=== PATIENT | female | born 1995 | race Caucasian/White ===

== ENCOUNTER 2024-08-16 19:53 | Emergency (ER) | payer SELFPAY ==
--- NOTE | ~2024-08-16 | XR_ITS ---
CLINICAL HISTORY: pain 3 view right shoulder Comparison: None provided Findings: Bones intact. No dislocations. No significant arthritic change. No erosions. No radiopaque foreign body. IMPRESSION: 1. No acute findings This document has been electronically signed by: Jeana Amaya MD on 08/16/2024 20:54:00
[2024-08-16 20:03] VITALS: BP 128/76; PULSE 92; RESP 20; TEMP 36.3; O2SAT 99; BMI 23.4
--- NOTE | 2024-08-16 20:04 | ED_ITS ---
HPI - General Adult General Chief complaint: Extremity Problem Stated complaint: R shoulder pain Time Seen by Provider: 08/16/24 23:57 Source: patient Mode of arrival: ambulatory Limitations: no limitations History of Present Illness ED Provider: Dr. Ann Correa HPI narrative: Patient comes to the emergency room complaining of right-sided upper back pain. Patient denies any trauma. Patient states that the pain is there only with movement. Denies any injuries any falls or any heavy lifting. Denies any numbness or tingling, or any radiation of pain Related Data Previous Rx's ?Medication ?Instructions ?Recorded cyclobenzaprine 5 mg tablet 5 mg PO TID PRN muscle spa sm #10 08/17/24 tabs ibuprofen 600 mg tablet 600 mg PO Q8H PRN fever or p ain 08/17/24 #20 tabs Allergies Allergy/AdvReac Type Severity Reaction Status Date / Time sulfamethoxazole (From Allergy Severe ANAPHYLAXIS Verified 08/16/24 20:04 BACTRIM) trimethoprim (From BACTRIM) Allergy Severe ANAPHYLAXIS Verified 08/16/24 20:04 Review of Systems Review of Systems: Constitutional : No Weight loss, No Fever, No Chills, No Night Sweats, No Fatigue, No Malaise ENT/Mouth : No Hearing loss, No Ear Pain, No Nasal Congestion, No Sinus Pain, No Hoarseness, No sore throat, No Rhinorrhea, No Swallowing Difficulty Eyes: No Eye Pain, No Swelling, No Redness, No Foreign Body, No Discharge, No Vision Changes Cardiovascular : No Chest Pain, No SOB, No Dyspnea on Exertion, No Orthopnea, No Edema, No Palpitations Respiratory : No Cough, No Sputum, No Wheezing, No Smoke Exposure, No Dyspnea Gastrointestinal : No Nausea, No Vomiting, No Diarrhea, No Constipation, No abdominal Pain, No Hematochezia, No Melena Genitourinary : no irregular bleeding, No Dysuria, No Urinary Frequency, No Hematuria, No Urinary Incontinence, No Urgency, No Flank Pain, No Urinary Flow Changes, No Hesitancy Musculoskeletal : Complaining of upper back pain above the suprascapular area, No Myalgias, No Joint Swelling Skin : No Skin Lesions, No rash Neuro : No Weakness, No Numbness, No Paresthesias, No Loss of Consciousness, No Dizziness, No Headache Psych : No Anxiety/Panic, No Depression, No SI/HI/AH/VH, No Social Issues, Heme/Lymph: No Bruising, No Bleeding,No Lymphadenopathy Endocrine : No Polyuria, No Polydipsia, No Temperature Intolerance [facility] Social History Social History Advance Directives: No Advance Directives Information Provided: Yes Physical Exam ED Vital Signs: Vital Signs - 24 hr 08/16/24 20:03 Temperature 97.4 F Pulse Rate 92 Respiratory Rate 20 Blood Pressure 128/76 Pulse Oximetry 99 Oxygen Delivery Method Room Air BMI result Body Mass Index 23.4 Const Other: Appearance: Alert. Oriented X3. No acute distress. Eyes: Pupils equal, round and reactive to light. ENT: Pharynx normal. Neck: Normal inspection. Neck supple. No lymph nodes noted. No crepitus CVS: Normal heart rate and rhythm. Pulses normal. Normal S1 and S2 Respiratory: No respiratory distress. Breath sounds normal. No Wheezing. No rales Abdomen: Soft and nontender. No rigidity. No distention. Skin: Skin warm and dry. Normal skin color. Normal skin turgor. Extremities: No lower extremity edema. No Lacerations. No Rash normal range of motion, normal abduction Neuro: Oriented X 3. No motor deficit. No sensory deficit. Moving all extremities. No slurred speech. CN 2 through 12 grossly intact Psych: calm, cooperative, normal affect Course Course Course Narrative: RME, this is a rapid medical exam performed by Saúl Astudillo please refer to primary provider for complete H&P- 28-year-old female presents for evaluation of right shoulder pain. Denies any specific injury but reports that she woke up with the pain 2 days ago. Plan for x-ray Medical Decision Making Medical Decision Making MDM Narrative: Patient has normal strength and range of motion. X-ray of the shoulder does not show any acute abnormality. Patient's pain likely musculoskeletal. Patient declined IM medication, patient was given p.o. cyclobenzaprine in the emergency room. Differential Diagnosis Differential Diagnoses: The differential diagnosis associated with the presentation includes (Frozen shoulder,, dislocation, musculoskeletal pain) Independent Interpretation I performed an independent interpretation of an: Plain X-Ray Radiology Impression Discussion of test interpretation with radiology: I have reviewed the radiologist's reading. Radiologist Impression: Bones intact. No dislocations. No significant arthritic change. No erosions. No radiopaque foreign body. Discharge Plan Discharge Clinical Impression: Musculoskeletal pain Patient Disposition: Home, Self-Care Instructions: Musculoskeletal Pain (ED) Additional Instructions: Please follow-up with your primary care physician tomorrow. If you have any worsening or new symptoms, please return to the emergency room or call 911 Prescriptions: New cyclobenzaprine 5 mg tablet 5 mg PO TID PRN (Reason: muscle spasm) Qty: 10 0RF ibuprofen 600 mg tablet 600 mg PO Q8H PRN (Reason: fever or pain) Qty: 20 0RF Print Language: Polish
[2024-08-17] MEDS: Cyclobenzaprine HCl 10 MG TABLET PO (00:14)
[2024-08-17 00:20] VITALS: BP 97/53; PULSE 75; RESP 16; TEMP 36.3; O2SAT 99
[2024-08-17 00:30] VITALS: BP 97/53; PULSE 75; RESP 16; TEMP 36.3; O2SAT 99
== END 2024-08-17 00:50 | disposition home or self-care (01) ==
PROVIDERS: Emergency Provider Emergency Medicine
DX: M79.18 Myalgia, other site (principal); M25.511 Pain in right shoulder
CPT/HCPCS: 73030; 99283

== ENCOUNTER → 2024-08-16 20:03 | Outpatient (BNV) | payer SELFPAY | PROVIDERS: Visit Provider Student in an Organized Health Care Education/Training Program | DX: M25.511 Pain in right shoulder (principal) | CPT/HCPCS: 73030 ==